=== PATIENT | female | born 1980 | race Two or more races ===

== ENCOUNTER 2020-09-15 18:10 | Emergency (ER) | payer SELFPAY ==
[~2020-09-15] VITALS: Ht 170.2 cm; Wt 109.0 kg
[2020-09-15 19:00] LABS: BILIRUBIN,URINE NEGATIVE (NEG); CLARITY,URINE CLEAR; COLOR,URINE YELLOW; NITRITE,URINE NEGATIVE (NEG); PROTEIN,URINE NEGATIVE (NEG-TRACE); UROBILINOGEN,URINE 0.2 mg/dL (0.2 mg/dL)
[2020-09-15] MEDS ORDERED: KETOROLAC 15 MG/ML VIAL. IVP ONE (19:00)
[2020-09-15] MEDS ORDERED: FAMOTIDINE 20 MG/2 ML VIAL IVP ONE (19:00)
[2020-09-15] MEDS ORDERED: IV NORMAL SALINE 1000ML BAG 1,000 ML IV ONE (19:00)
[2020-09-15 19:08] LABS: BACTERIA,URINE 0 /HPF (0-FEW); RBC,URINE 0 /HPF (0-2)
[2020-09-15 19:28] LABS: BASO # 0.1 x10^3/uL (0.0-0.2); BASO % 1 % (0-3); EOS # 0.6 x10^3/uL (0.0-0.7); EOS % 9 % (0-3); HEMATOCRIT 29.2 % (36.0-47.0); HEMOGLOBIN 9.1 g/dL (12.0-15.5); LYMPH # 2.5 x10^3/uL (1.0-4.8); LYMPH % 41 % (24-48); MEAN CORPUSCULAR HEMOGLOBIN 20 pg (25-35); MEAN CORPUSCULAR HGB CONC 31 g/dL (31-37); MEAN CORPUSCULAR VOLUME 66 fL (79-100); MONO # 0.4 x10^3/uL (0.0-1.1); MONO % 6 % (0-9); NEUT # 2.6 x10^3/uL (1.8-7.7); NEUT % 43 % (31-73); PLATELET COUNT 244 x10^3/uL (140-400); RED BLOOD COUNT 4.45 x10^6/uL (3.50-5.40); RED CELL DISTRIBUTION WIDTH 19.6 % (11.5-14.5); WHITE BLOOD COUNT 6.1 x10^3/uL (4.0-11.0)
--- NOTE | 2020-09-15 19:39 | PHYS DOC ---
Past Medical History Past Medical History: Anxiety, Other Additional Past Medical Histor: Covid19 Past Surgical History: Additional Past Surgical Histo: L heel Smoking Status: Never Smoker Alcohol Use: None Drug Use: None General Adult EDM: Chief Complaint: WEAKNESS/GENERALIZED HPI: HPI: Patient is a 40 year old female who presents with weakness, fatigue, and constipation. Patient is status post Covid diagnosis a month ago which ran its course without specific treatment. She denies any recent change to medication, and notes only taking hydroxyzine and citalopram once daily. She has not taken any other khjm-omy-[id number] medications or other prescriptions. She notes some reflux-like chest pain in her epigastric region, and she says she has been short of breath. She also notes constipation of around 2 weeks duration, although she had a bowel movement earlier today and said it was without blood or change in appearance. She denies any other focal abdominal pain. The weakness has been off and on for some time since Covid diagnosis. She denies cough, fever or chills. Review of Systems: Review of Systems: Constitutional: Denies fever or chills Eyes: Denies redness or eye pain HENT: Denies nasal congestion or sore throat Respiratory: Denies cough notes some shortness of breath Cardiovascular: Admits chest pain in the epigastric region denies palpitations GI: Denies abdominal pain, nausea, or vomiting : Denies dysuria or hematuria Musculoskeletal: Denies back pain or joint pain Integument: Denies rash or skin lesions Neurologic: Denies headache, admits generalized weakness denies sensory changes Complete systems were reviewed and found to be within normal limits, except as documented in this note. Current Medications: Current Medications Medications (Trade) Dose Ordered Sig/[facility] Start Time Stop Time Status Last Admin Dose Admin Famotidine (Pepcid Vial) 20 mg 1X ONCE 09/15/20 19:00 09/15/20 19:01 DC 09/15/20 19:22 20 MG Ketorolac Tromethamine (Toradol 15mg Vial) 15 mg 1X ONCE 09/15/20 19:00 09/15/20 19:01 DC 09/15/20 19:22 15 MG Sodium Chloride 1,000 ml @ 1,000 mls/hr 1X ONCE 09/15/20 19:00 09/15/20 19:59 09/15/20 19:22 1,000 MLS/HR Allergies: Allergies: Allergies Coded Allergies Type Severity Reaction Last Updated Verified No Known Drug Allergies 09/15/20 No Physical Exam: PE: Constitutional: Well developed, well nourished, no acute distress, non-toxic appearance HENT: Normocephalic, atraumatic Eyes: PERRL, EOMI, conjunctiva normal, no discharge Neck: Normal range of motion, no tenderness, supple Lungs & Thorax: No respiratory distress, equal chest rise and fall Abdomen: Soft, some tenderness over the epigastric region Skin: Warm, dry, no erythema, no rash Back: No tenderness, no CVA tenderness Extremities: No tenderness, ROM intact, no edema Neurologic: Alert and oriented X 3, normal motor function, normal sensory function, no focal deficits noted Psychologic: Affect normal, judgment normal Current Patient Data: Labs: Laboratory Tests Test 09/15/20 18:45 09/15/20 18:55 Urine Collection Type Unknown Urine Color Yellow Urine Clarity Clear Urine pH 6.0 (<5.0-8.0) Urine Specific [place] 1.025 (1.000-1.030) Urine Protein Negative mg/dL (NEG-TRACE) Urine Glucose (UA) Negative mg/dL (NEG) Urine Ketones (Stick) Negative mg/dL (NEG) Urine Blood Negative (NEG) Urine Nitrite Negative (NEG) Urine Bilirubin Negative (NEG) Urine Urobilinogen Dipstick 0.2 mg/dL (0.2 mg/dL) Urine Leukocyte Esterase Negative (NEG) Urine RBC 0 /HPF (0-2) Urine WBC 1-4 /HPF (0-4) Urine Squamous Epithelial Cells Occ /LPF Urine Bacteria 0 /HPF (0-FEW) POC Urine HCG, Qualitative Hcg negative (Negative) Vital Signs: Vital Signs Date Time Temp Pulse Resp B/P (MAP) Pulse Ox O2 Delivery O2 Flow Rate FiO2 09/15/20 18:25 98.2 83 18 126/78 (94) 99 Room Air 98.2 EKG: EKG: Normal sinus rhythm [address] elevation or other abnormalities noted. QRS 104 ms. QT/QTc 362/411 ms. Radiology/Procedures: Radiology/Procedures: PROCEDURE: CT ANGIOGRAPHY CHEST Exam: CT of chest with contrast INDICATION: Port of air, history of Covid TECHNIQUE: Sequential axial images through the chest obtained following the administration of 100 mL of Isovue-370 IV contrast. Sagittal and coronal reformatted images were reconstructed from the axial data and reviewed. 3-D reformatted images were reconstructed from the axial data and reviewed. Comparisons: None FINDINGS: Visualized portions of the thyroid are unremarkable. No enlarged central lymph nodes are identified. Heart size is normal. No pericardial effusion. Thoracic aorta has a normal course and caliber. Pulmonary artery is not enlarged. No pulmonary embolus identified within the main, lobar or segmental pulmonary arteries. Airways are patent. No consolidation or pneumothorax. No suspicious lung nodules are identified. No pleural effusion or thickening. Visualized upper abdomen is unremarkable. No suspicious osseous lesions or acute fractures. IMPRESSION: No pulmonary embolus identified within the main, lobar or segmental pulmonary arteries. No acute process identified within the chest. Exposure: One or more of the following in the visualized dose reduction techniques were utilized for this examination: 1. Automated exposure control 2. Adjustment of the MA and/or KV according to patient size 3. Use of iterative of reconstructive technique Electronically signed by: All Prakash MD (09/15/2020 9:07 PM) [facility] Course & Med Decision Making: Course & Med Decision Making Pertinent Labs and Imaging studies reviewed. (See chart for details) [] Dragon Disclaimer: Dragon Disclaimer: This electronic medical record was generated, in whole or in part, using a voice recognition dictation system. 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
[2020-09-15 19:48] LABS: CALCIUM 8.2 mg/dL (8.5-10.1); CREATININE 0.7 mg/dL (0.6-1.0); GFR 93.6; POTASSIUM 3.8 mmol/L (3.5-5.1)
[2020-09-15 19:54] LABS: ALBUMIN 3.4 g/dL (3.4-5.0); ALBUMIN/GLOBULIN RATIO 0.8 (1.0-1.7); MAGNESIUM 2.1 mg/dL (1.8-2.4); TOTAL BILIRUBIN 0.2 mg/dL (0.2-1.0); TOTAL PROTEIN 7.7 g/dL (6.4-8.2)
[2020-09-15 19:58] LABS: ANISOCYTOSIS MOD; HYPOCHROMIA MOD; MICROCYTOSIS MOD; PLT ESTIMATE ADEQUATE (ADEQUATE)
[2020-09-15 20:03] LABS: CREATINE KINASE 80 U/L (26-192)
[2020-09-15] MEDS ORDERED: CONTRAST GIVEN. MC PRN (20:45)
[2020-09-15] MEDS ORDERED: IOHEXOL 350 MG/ML 100 ML VIAL. IV ONE (21:00)
--- NOTE | 2020-09-15 21:10 | RAD ---
Exam: CT of chest with contrast INDICATION: Port of air, history of Covid TECHNIQUE: Sequential axial images through the chest obtained following the administration of 100 mL of Isovue-370 IV contrast. Sagittal and coronal reformatted images were reconstructed from the axial data and reviewed. 3-D reformatted images were reconstructed from the axial data and reviewed. Comparisons: None FINDINGS: Visualized portions of the thyroid are unremarkable. No enlarged central lymph nodes are identified. Heart size is normal. No pericardial effusion. Thoracic aorta has a normal course and caliber. Pulmon dolores artery is not enlarged. No pulmonary embolus identified within the main, lobar or segmental pulmo nary arteries. Airways are patent. No consolidation or pneumothorax. No suspicious lung nodules are identified. No pleural effusion or thickening. Visualized upper abdomen is unremarkable. No suspicious osseous lesions or acute fractures. IMPRESSION: No pulmonary embolus identified within the main, lobar or segmental pulmonary arteries. No acute proc ess identified within the chest. Exposure: One or more of the following in the visualized dose reduction techniques were utilized for this examination: 1. Automated exposure control 2. Adjustment of the MA and/or KV according to patient size 3. Use of iterative of reconstructive technique Electronically signed by: All Prakash MD (09/15/2020 9:07 PM) [facility]
[2020-09-15] MEDS ORDERED: SENN-121 PO (21:17)
[2020-09-15 21:22] VITALS: BP 115/74
--- NOTE | 2020-09-16 07:22 | EKG ---
[facility] [address] [place] [address] Test Date: 2020-09-15 Test Time: 18:58:44 Pat Name: ALBIN GUERRA Department: Room: Gender: F Senior Business Analyst: : 1980 Requested By: ELIO PANDEY Order Number: [id number] Reading MD: Measurements Intervals Vendor Rate: 77 P: 0 OK: 144 QRS: 64 QRSD: 104 T: 35 QT: 362 QTc: 411 Interpretive Statements SINUS RHYTHM NORMAL ECG RI6.02 No previous ECG available for comparison
== END 2020-09-15 21:35 | disposition home or self-care (01) ==
LOC: ER 18:10
DX: K59.00 Constipation, unspecified (principal); R53.1 Weakness; R53.83 Other fatigue; R07.89 Other chest pain; F41.9 Anxiety disorder, unspecified; Z98.890 Other specified postprocedural states
CPT/HCPCS: 36415; 71275; 80053; 81001; 81025; 82553; 83735; 84484; 85025; 85379; 93005; 96361; 96374; 96375; 99285; J1885; J3490; J7030; Q9967

== ENCOUNTER 2021-12-12 17:29 | Inpatient (IN) | payer SELFPAY ==
[~2021-12-12] VITALS: Ht 167.6 cm; Wt 113.3 kg
[~2021-12-12 17:29] MED LIST: SENN-121 PO
[2021-12-12] MEDS ORDERED: ONDANSETRON PF 4 MG/2 ML VIAL. IVP ONE (18:30)
[2021-12-12] MEDS ORDERED: IV NORMAL SALINE 1000ML BAG 1,000 ML IV ONE (18:30)
[2021-12-12] MEDS ORDERED: ACETAMINOPHEN 500 MG TABLET PO ONE (18:30)
[2021-12-12 18:44] LABS: BASO # 0.1 x10^3/uL (0.0-0.2); BASO % 1 % (0-3); EOS # 0.1 x10^3/uL (0.0-0.7); EOS % 1 % (0-3); HEMATOCRIT 22.7 % (36.0-47.0); LYMPH # 3.2 x10^3/uL (1.0-4.8); LYMPH % 33 % (24-48); MEAN CORPUSCULAR HEMOGLOBIN 17 pg (25-35); MEAN CORPUSCULAR HGB CONC 31 g/dL (31-37); MEAN CORPUSCULAR VOLUME 56 fL (79-100); MONO # 0.5 x10^3/uL (0.0-1.1); MONO % 5 % (0-9); NEUT # 5.9 x10^3/uL (1.8-7.7); NEUT % 60 % (31-73); PLATELET COUNT 234 x10^3/uL (140-400); RED BLOOD COUNT 4.04 x10^6/uL (3.50-5.40); RED CELL DISTRIBUTION WIDTH 20.5 % (11.5-14.5); WHITE BLOOD COUNT 9.7 x10^3/uL (4.0-11.0)
[2021-12-12] MEDS ORDERED: KETOROLAC 30 MG/ML VIAL. IVP ONE (18:45)
[2021-12-12 18:50] LABS: HEMOGLOBIN 6.9 g/dL (12.0-15.5)
[2021-12-12 18:59] LABS: INFLUENZA A PATIENT NEGATIVE (NEGATIVE); INFLUENZA B PATIENT NEGATIVE (NEGATIVE)
--- NOTE | 2021-12-12 19:05 | RAD ---
XR CHEST 1V History: Reason: Fever chills / Spl. Instructions: / History: Comparison: None. Findings: No consolidation or pleural effusion. Normal heart size. No pneumothorax. Impression: 1. No acute cardiopulmonary process. Electronically signed by: Ja Curiel DO (12/12/2021 7:03 PM) [facility]
[2021-12-12 19:07] LABS: CALCIUM 8.7 mg/dL (8.5-10.1); CREATININE 0.8 mg/dL (0.6-1.0); GFR 79.9; POTASSIUM 3.8 mmol/L (3.5-5.1)
[2021-12-12 19:11] LABS: BACTERIA,URINE MANY /HPF (0-FEW); RBC,URINE 0 /HPF (0-2)
[2021-12-12 19:12] LABS: ALBUMIN 3.4 g/dL (3.4-5.0); ALBUMIN/GLOBULIN RATIO 0.7 (1.0-1.7); TOTAL BILIRUBIN 0.6 mg/dL (0.2-1.0); TOTAL PROTEIN 8.5 g/dL (6.4-8.2)
[2021-12-12 19:26] LABS: FECAL OB PT NEGATIVE (NEG)
[2021-12-12 19:29] LABS: PLT ESTIMATE ADEQUATE (ADEQUATE)
[2021-12-12 19:30] LABS: ANISOCYTOSIS MOD; HYPOCHROMIA MARKED; MICROCYTOSIS MARKED
[2021-12-12] MEDS ORDERED: cefTRIAXone IV Push 1 GM VIAL. IVP ONE (19:45)
--- NOTE | 2021-12-12 20:28 | PHYS DOC ---
Past Medical History Past Medical History: Anxiety, Other Additional Past Medical Histor: Covid19 Past Surgical History: Additional Past Surgical Histo: L heel Smoking Status: Never Smoker Alcohol Use: None Drug Use: None General Adult EDM: Chief Complaint: FLU SYMPTOM HPI: HPI: Patient is a 41-year-old female who presents to the emergency department complaining of fevers and chills with generalized body aches for the past 3 days. Patient denies nausea, vomiting, diarrhea, denies abdominal pain, denies chest pain, shortness of breath, denies nasal congestion. Patient denies dizziness, syncopal or near syncopal episodes. Patient denies other physical complaints or physical concerns. Patient does report her last menstrual cycle was November 27, 2021 with normal duration and flow. Patient states she does not take prescription medications at home, has not treated her fever today with sohb-dso-dcocyzf Tylenol or ibuprofen. Review of Systems: Review of Systems: 14 body systems of review of systems have been reviewed. See HPI for pertinent positives and negative responses, otherwise all other systems are negative, nonpertinent or noncontributory. Constitutional: Negative except as outlined in HPI above. Skin: Negative except as outlined in HPI above. Eyes: Negative except as outlined in HPI above. HENT: Negative except as outlined in HPI above. Respiratory: Negative except as outlined in HPI above. Cardiovascular: Negative except as outlined in HPI above. GI: Negative except as outlined in HPI above. : Negative except as outlined in HPI above. Musculoskeletal: Negative except as outlined in HPI above. Integument: Negative except as outlined in HPI above. Neurologic: Negative except as outlined in HPI above. Endocrine: Negative except as outlined in HPI above. Lymphatic: Negative except as outlined in HPI above. Psychiatric: Negative except as outlined in HPI above. Heart Score: C/O Chest Pain: No Risk Factors: Risk Factors: DM, Current or recent (<one month) smoker, HTN, HLP, family history of CAD, obesity. Risk Scores: Score 0 - 3: 2.5% MACE over next 6 weeks - Discharge Home Score 4 - 6: 20.3% MACE over next 6 weeks - Admit for Clinical Observation Score 7 - 10: 72.7% MACE over next 6 weeks - Early Invasive Strategies Current Medications: Current Medications Medications (Trade) Dose Ordered Sig/Yolanda Start Time Stop Time Status Last Admin Dose Admin Acetaminophen (Tylenol) 1,000 mg 1X ONCE 12/12/21 18:30 12/12/21 18:33 DC 12/12/21 18:50 1,000 MG Ceftriaxone Sodium (Rocephin) 1 gm 1X ONCE 12/12/21 19:45 12/12/21 19:46 DC 12/12/21 19:54 1 GM Ketorolac Tromethamine (Toradol 30mg Vial) 30 mg 1X ONCE 12/12/21 18:45 12/12/21 18:46 DC 12/12/21 18:51 30 MG Ondansetron HCl (Zofran) 4 mg 1X ONCE 12/12/21 18:30 12/12/21 18:33 DC 12/12/21 18:50 4 MG Sodium Chloride 1,000 ml @ 1,000 mls/hr 1X ONCE 12/12/21 18:30 12/12/21 19:29 DC 12/12/21 18:48 1,000 MLS/HR Allergies: Allergies: Allergies Coded Allergies Type Severity Reaction Last Updated Verified No Known Drug Allergies 12/12/21 No Physical Exam: PE: Constitutional: Well developed, well nourished, no acute distress, non-toxic appearance. 41-year-old female in no apparent distress. HENT: Normocephalic, atraumatic. Oropharynx moist, pale, no deep tissue infectious process appreciated, normal dentition. Nasal turbinates are patent, bilateral TMs intact and within normal limits, there is no lymphadenopathy of the head or neck appreciated Eyes: Conjunctiva dusky, no discharge. Neck: Normal range of motion, no stridor. Cardiovascular: No cyanosis appreciated, distal cap refill less than 2 seconds. Heart sounds S1, S2, rapid/tachycardic rate. Lungs & Thorax: Patient is in no respiratory distress, no audible adventitious lung sounds appreciated. Lung sounds are clear to auscultation all lung tillman, normal work of breathing. Abdomen: Nontender, no abnormalities noted. Old well-healed abdominal scars present. Skin: Warm, dry, no erythema, no rash. Back: No tenderness, no deformities. Extremities: No tenderness, no cyanosis, no clubbing, ROM intact, no edema. Neurologic: Alert and oriented X 3, normal motor function, normal sensory function, no focal deficits noted. Psychologic: Affect normal, judgement normal, mood normal. Current Patient Data: Labs: Laboratory Tests Test 12/12/21 18:15 12/12/21 18:26 12/12/21 18:32 12/12/21 18:33 Urine Collection Type Unknown Urine Color (Auto) Yellow Urine Turbidity Clear Urine pH (Auto) 7.5 (<5.0-8.0) Urine Specific [place] 1.018 (1.000-1.030) Urine Protein (Auto) 30 mg/dL (Negative) Urine Glucose (Auto)(UA) Negative mg/dL (Negative) Urine Ketones (Auto) Negative mg/dL (Negative) Urine Blood (Auto) Negative (Negative) Urine Nitrite Positive (Negative) Urine Bilirubin (Auto) Negative (Negative) Urine Urobilinogen (Auto) 2 mg/dL (Normal) Urine Leukocyte Esterase (Auto) Moderate (Negative) Urine RBC 0 /HPF (0-2) Urine WBC 5-10 /HPF (0-4) Urine Squamous Epithelial Cells Few /LPF Urine Bacteria Many /HPF (0-FEW) Urine Mucus Slight /LPF White Blood Count 9.7 x10^3/uL (4.0-11.0) Red Blood Count 4.04 x10^6/uL (3.50-5.40) Hemoglobin 6.9 g/dL (12.0-15.5) *L Hematocrit 22.7 % (36.0-47.0) L Mean Corpuscular Volume 56 fL (79-100) L Mean Corpuscular Hemoglobin 17 pg (25-35) L Mean Corpuscular Hemoglobin Concent 31 g/dL (31-37) Red Cell Distribution Width 20.5 % (11.5-14.5) H Platelet Count 234 x10^3/uL (140-400) Neutrophils (%) (Auto) 60 % (31-73) Lymphocytes (%) (Auto) 33 % (24-48) Monocytes (%) (Auto) 5 % (0-9) Eosinophils (%) (Auto) 1 % (0-3) Basophils (%) (Auto) 1 % (0-3) Neutrophils # (Auto) 5.9 x10^3/uL (1.8-7.7) Lymphocytes # (Auto) 3.2 x10^3/uL (1.0-4.8) Monocytes # (Auto) 0.5 x10^3/uL (0.0-1.1) Eosinophils # (Auto) 0.1 x10^3/uL (0.0-0.7) Basophils # (Auto) 0.1 x10^3/uL (0.0-0.2) Platelet Estimate Adequate (ADEQUATE) Hypochromasia Marked Anisocytosis Mod Microcytosis Marked Sodium Level 136 mmol/L (136-145) Potassium Level 3.8 mmol/L (3.5-5.1) Chloride Level 102 mmol/L (98-107) Carbon Dioxide Level 21 mmol/L (21-32) Anion Gap 13 (6-14) Blood Urea Nitrogen 8 mg/dL (7-20) Creatinine 0.8 mg/dL (0.6-1.0) Estimated GFR (Cockcroft-Gault) 79.9 BUN/Creatinine Ratio 10 (6-20) Glucose Level 108 mg/dL (70-99) H Lactic Acid Level 1.2 mmol/L (0.4-2.0) Calcium Level 8.7 mg/dL (8.5-10.1) Total Bilirubin 0.6 mg/dL (0.2-1.0) Aspartate Amino Transferase (AST) 17 U/L (15-37) Alanine Aminotransferase (ALT) 18 U/L (14-59) Alkaline Phosphatase 70 U/L (46-116) Total Protein 8.5 g/dL (6.4-8.2) H Albumin 3.4 g/dL (3.4-5.0) Albumin/Globulin Ratio 0.7 (1.0-1.7) L Influenza Type A Antigen Negative (NEGATIVE) Influenza Type B Antigen Negative (NEGATIVE) SARS-CoV-2 Antigen (Rapid) Negative (NEGATIVE) POC Urine HCG, Qualitative Hcg negative (Negative) Test 12/12/21 18:54 Stool Occult Blood Negative (NEG) Laboratory Tests 12/12/21 18:26 Laboratory Tests 12/12/21 18:26 Vital Signs: Vital Signs Date Time Temp Pulse Resp B/P (MAP) Pulse Ox O2 Delivery O2 Flow Rate FiO2 12/12/21 17:50 103.0 104 22 157/65 (95) 96 Room Air 103.0 EKG: EKG: [] Radiology/Procedures: Radiology/Procedures: SEX: F EXAM STATUS: REG ER ORD. PHYSICIAN: ELIO TEJADA APRN REASON: Fever chills PROCEDURE: PORTABLE CHEST 1V XR CHEST 1V History: Reason: Fever chills / Spl. Instructions: / History: Comparison: None. Findings: No consolidation or pleural effusion. Normal heart size. No pneumothorax. Impression: 1. No acute cardiopulmonary process. Electronically signed by: Ja Curiel DO (12/12/2021 7:03 PM) [facility] Course & Med Decision Making: Course & Med Decision Making Pertinent Labs and Imaging studies reviewed. (See chart for details) 41-year-old female, vital signs reviewed, presents emerged from concerning fever chills and body aches at home. Physical presentation is concerning for viral syndrome however patient does have pale conjunctiva, suspicious for anemia. Will order 1 L normal saline, Zofran, Tylenol for fever of 103, CBC, lactic acid with reflex, CMP, urinalysis assay, urine test, rapid influenza and COVID testing, chest x-ray. Lab called critical hemoglobin of 6.9, I did discuss this with patient, recommended blood transfusion, patient is amendable to receiving blood related to her low hemoglobin level, patient denies a history of anemia, denies seeing blood in her stool, patient reports she does have heavy periods but has never been told that she is anemic. Discussed with patient needing to obtain stool for occult blood, patient is amenable to this planning. With female ED nurse at bedside for litigation docket manager, a rectal exam revealed nonth rombosed external hemorrhoids, there were no internal hemorrhoids appreciated, soft brown stool in the rectal vault was obtained and sent to lab for occult blood study. Patient tolerated well. The patient was typed and crossed for 2 units of packed red blood cells for transfusion. Patient's chest x-ray is unremarkable, all other patient labs are unremarkable, however the patient's urine is suggestive of urinary tract infection evidence of leukocyte Estrace, urine white blood cells, urine nitrates, there is no hematuria present, will treat with 1 g Rocephin IV. The patient is not for urine test. Discussed admission to the hospital for further investigation of anemia, patient is amenable to ED and admission planning. Called and discussed patient case and ED work-up with inpatient management physician Dr. Love who agrees patient's case warrants admission to the [facility], patient is awaiting hospital bed from warehouse distribution associate at this time, remains hemodynamically stable, last oral temp taken by me is 99.7, heart rate is 89 bpm, blood pressure 137/65, 100% room air O2 saturation. Dragon Disclaimer: Dragon Disclaimer: This electronic medical record was generated, in whole or in part, using a voice recognition dictation system. Departure Departure Impression: Primary Impression: Anemia Qualified Codes: D64.9 - Anemia, unspecified Additional Impression: Fever Qualified Codes: R50.9 - Fever, unspecified Disposition: 09 ADMITTED INPATIENT Admitting Physician: ORI (Admit to Dr. Love to [facility] unit for) Condition: GUARDED Referrals: NO PCP (PCP) ELIO TEJADA APRN December 12, 2021 20:28
[2021-12-12] MEDS: IV NORMAL SALINE 1000ML BAG 1,000 ML IV SCH (20:30)
[2021-12-12] MEDS ORDERED: MORPHINE SULFATE 4 MG/ML INJ. IVP PRN (20:30)
[2021-12-12] MEDS ORDERED: ONDANSETRON PF 4 MG/2 ML VIAL. IVP PRN (20:30)
[2021-12-12] MEDS ORDERED: ACETAMINOPHEN 325 MG TABLET. PO PRN (20:30)
[2021-12-12 21:15] VITALS: BP 118/54
[2021-12-12 22:01] VITALS: BP 115/49
[2021-12-12 22:16] VITALS: BP 111/50
[2021-12-12 23:00] VITALS: BP 105/52
[2021-12-12 23:20] VITALS: BP 105/52
[2021-12-13 00:45] VITALS: BP 108/52
[2021-12-13 01:34] LABS: HEMOGLOBIN 8.2 g/dL (12.0-15.5); RED BLOOD COUNT 4.36 x10^6/uL (3.50-5.40); RED CELL DISTRIBUTION WIDTH 20.9 % (11.5-14.5); WHITE BLOOD COUNT 8.1 x10^3/uL (4.0-11.0)
[2021-12-13 03:00] VITALS: BP 115/65
[2021-12-13] MEDS: IV NORMAL SALINE 1000ML BAG 1,000 ML IV SCH ×2 (04:53→15:11)
[2021-12-13 07:00] VITALS: BP 100/46
[2021-12-13 11:00] VITALS: BP 98/55
[2021-12-13] MEDS ORDERED: CALCIUM CARBONATE 500 MG TAB.CHEW PO PRN (11:15)
[2021-12-13] MEDS ORDERED: oxyCODONE/APAP 5/325 1 TAB TABLET PO PRN ×2 (11:15)
[2021-12-13] MEDS ORDERED: ELECTROLYTE (NON-ICU) PROTOCOL. MC PRN (11:15)
[2021-12-13] MEDS ORDERED: ZOLPIDEM 5 MG TABLET. PO PRN (11:15)
[2021-12-13] MEDS ORDERED: ONDANSETRON PF 4 MG/2 ML VIAL. IVP PRN (11:15)
[2021-12-13] MEDS ORDERED: ACETAMINOPHEN 325 MG TABLET. PO PRN (11:15)
--- NOTE | 2021-12-13 12:18 | PDOC1 ---
History and Physical Date of Service: DOS: DATE: 12/13/21 TIME: 12:11 Chief Complaint: Chief Complain: fever, fatigue History of Present Illness: HPI: Patient is a 41-year-old female presented to emergency room overnight due to 3- day history of fever chills and body aches. Denying any sort of respiratory symptoms. Did have COVID in the past but recovered well. On presentation to the emergency room patient was febrile and provided Tylenol for relief. She had an incidental finding of hemoglobin of 6.8. No signs of active bleeding including any GI sources. She was transfused 2 units packed red blood cells. When obtaining further history patient reports that she has very heavy periods each month and her most recent period finished on 02 December. Uncertain if she has been told she was anemic in the past. Patient uncertain of any family history of blood disorders. Says she had a grandfather who by bleeding out. Family members were told that he had "thin blood and did not clot properly." Patient also found to have urinary tract infection started on Rocephin in emergency room Admitted for further management Past Medical/Surgical History: PMH/PSH: Past Medical History: Anxiety, Additional Past Medical Histor: Covid19 Past Surgical History: Additional Past Surgical Histo: L heel Smoking Status: Never Smoker Alcohol Use: None Drug Use: None Allergies: Allergies: Coded Allergies: No Known Drug Allergies (Unverified , 12/12/21) Family History: Family History: unknown per patient Current Medications: Current Medications Current Medications Sodium Chloride 1,000 ml @ 1,000 mls/hr 1X ONCE IV Last administered on 12/12/21at 18:48; Start 12/12/21 at 18:30; Stop 12/12/21 at 19:29; Status DC Ondansetron HCl (Zofran) 4 mg 1X ONCE IVP Last administered on 12/12/21at 18:50; Start 12/12/21 at 18:30; Stop 12/12/21 at 18:33; Status DC Acetaminophen (Tylenol) 1,000 mg 1X ONCE PO Last administered on 12/12/21at 18:50; Start 12/12/21 at 18:30; Stop 12/12/21 at 18:33; Status DC Ketorolac Tromethamine (Toradol 30mg Vial) 30 mg 1X ONCE IVP Last administered on 12/12/21at 18:51; Start 12/12/21 at 18:45; Stop 12/12/21 at 18:46; Status DC Ceftriaxone Sodium (Rocephin) 1 gm 1X ONCE IVP Last administered on 12/12/21at 19:54; Start 12/12/21 at 19:45; Stop 12/12/21 at 19:46; Status DC Ondansetron HCl (Zofran) 4 mg PRN Q8HRS PRN IVP NAUSEA/VOMITING; Start 12/12/21 at 20:30; Stop 12/13/21 at 20:29 Morphine Sulfate (Morphine Sulfate) 4 mg PRN Q2HR PRN IVP PAIN; Start 12/12/21 at 20:30; Stop 12/13/21 at 20:29 Sodium Chloride 1,000 ml @ 100 mls/hr Q10H IV Last administered on 12/13/21at 04:53; Start 12/12/21 at 20:30; Stop 12/13/21 at 20:29 Acetaminophen (Tylenol) 650 mg PRN Q4HRS PRN PO FEVER > 100.3'F Last administered on 12/13/21at 03:29; Start 12/12/21 at 20:30; Stop 12/13/21 at 20:29 Ondansetron HCl (Zofran) 4 mg PRN Q6HRS PRN IVP NAUSEA/VOMITING; Start 12/13/21 at 11:15 Calcium Carbonate/ Glycine (Tums) 500 mg PRN Q3HRS PRN PO UPSET STOMACH; Start 12/13/21 at 11:15 Zolpidem Tartrate (Ambien) 5 mg PRN QHS PRN PO INSOMNIA, MAY REPEAT IN 1HR; Start 12/13/21 at 11:15 Info (Non-Icu Electrolyte Protocol) 1 ea PRN DAILY PRN MC SEE COMMENTS; Start 12/13/21 at 11:15 Oxycodone/ Acetaminophen (Percocet 5/325) 1 tab PRN Q4HRS PRN PO MILD PAIN, 1ST CHOICE; Start 12/13/21 at 11:15 Oxycodone/ Acetaminophen (Percocet 5/325) 2 tab PRN Q4HRS PRN PO MODERATE PAIN, SEVERE PAIN; Start 12/13/21 at 11:15 Acetaminophen (Tylenol) 650 mg PRN Q6HRS PRN PO Headaches, Temp > 101.5F; Start 12/13/21 at 11:15 Senna/Docusate Sodium (Senna Plus) 1 tab BID PO ; Start 12/13/21 at 21:00 Ceftriaxone Sodium (Rocephin) 1 gm Q24H IVP ; Start 12/13/21 at 21:00 Active Scripts Active Colace 2-in-1 Tablet (Sennosides/Docusate Sodium) 1 Each Tablet 1 Tab PO QHS PRN ROS: Review of Systems Review of System Unless noted in HPI 14 point review of systems was negative Physical Exam: Vital Signs: Vital Signs Date Time Temp Pulse Resp B/P (MAP) Pulse Ox O2 Delivery O2 Flow Rate FiO2 12/13/21 11:00 98.1 101 18 98/55 (69) 98 Room Air 98.1 Physcial Exam: GEN: No apparent distress. Alert and oriented HEENT: Normal cephalic, atraumatic, external auditory canals are patent EYES: Extraocular muscles are intact, pupil are equally round and reactive to light and accommodation MUSCULOSKELETAL: Well developed , well nourished, good range of motion ENDOCRINE: No thyromegaly was palpated LYMPHATICS: No cervical chain or axillary nodes were noted HEMATOPOIETIC: No bruising NECK: Supple, no JVD, no thyromegaly was noted LUNGS: Clear to auscultation in all lung tillman without rhonchi or wheezing HEART: RRR, S!, S2 present. Peripheral pulses intact, no obvious murmurs noted ABDOMEN: Soft, nontender. Positive bowel sounds, no organomegaly, normal bowel sounds EXTREMITIES: Without clubbing, cyanosis, or edema. Pedal pulses intact. Negative Homans sign NEUROLOGIC: Normal speech and tone. A&O x 3, moves all extremities, no obvious focal deficits PSYCHIATRIC: Normal affect, normal mood. Stable SKIN: No ulcerations or rashes, good skin turgor, no jaundice VASCULAR: Good capillary refill, neurovascular bundle appears to be intact Labs: Labs: Laboratory Tests Test 12/12/21 18:15 12/12/21 18:26 12/12/21 18:32 12/12/21 18:33 Urine Collection Type Unknown Urine Color (Auto) Yellow Urine Turbidity Clear Urine pH (Auto) 7.5 (<5.0-8.0) Urine Specific Bernard 1.018 (1.000-1.030) Urine Protein (Auto) 30 mg/dL (Negative) Urine Glucose (Auto)(UA) Negative mg/dL (Negative) Urine Ketones (Auto) Negative mg/dL (Negative) Urine Blood (Auto) Negative (Negative) Urine Nitrite Positive (Negative) Urine Bilirubin (Auto) Negative (Negative) Urine Urobilinogen (Auto) 2 mg/dL (Normal) Urine Leukocyte Esterase (Auto) Moderate (Negative) Urine RBC 0 /HPF (0-2) Urine WBC 5-10 /HPF (0-4) Urine Squamous Epithelial Cells Few /LPF Urine Bacteria Many /HPF (0-FEW) Urine Mucus Slight /LPF White Blood Count 9.7 x10^3/uL (4.0-11.0) Red Blood Count 4.04 x10^6/uL (3.50-5.40) Hemoglobin 6.9 g/dL (12.0-15.5) Hematocrit 22.7 % (36.0-47.0) Mean Corpuscular Volume 56 fL (79-100) Mean Corpuscular Hemoglobin 17 pg (25-35) Mean Corpuscular Hemoglobin Concent 31 g/dL (31-37) Red Cell Distribution Width 20.5 % (11.5-14.5) Platelet Count 234 x10^3/uL (140-400) Neutrophils (%) (Auto) 60 % (31-73) Lymphocytes (%) (Auto) 33 % (24-48) Monocytes (%) (Auto) 5 % (0-9) Eosinophils (%) (Auto) 1 % (0-3) Basophils (%) (Auto) 1 % (0-3) Neutrophils # (Auto) 5.9 x10^3/uL (1.8-7.7) Lymphocytes # (Auto) 3.2 x10^3/uL (1.0-4.8) Monocytes # (Auto) 0.5 x10^3/uL (0.0-1.1) Eosinophils # (Auto) 0.1 x10^3/uL (0.0-0.7) Basophils # (Auto) 0.1 x10^3/uL (0.0-0.2) Platelet Estimate Adequate (ADEQUATE) Hypochromasia Marked Anisocytosis Mod Microcytosis Marked Sodium Level 136 mmol/L (136-145) Potassium Level 3.8 mmol/L (3.5-5.1) Chloride Level 102 mmol/L (98-107) Carbon Dioxide Level 21 mmol/L (21-32) Anion Gap 13 (6-14) Blood Urea Nitrogen 8 mg/dL (7-20) Creatinine 0.8 mg/dL (0.6-1.0) Estimated GFR (Cockcroft-Gault) 79.9 BUN/Creatinine Ratio 10 (6-20) Glucose Level 108 mg/dL (70-99) Lactic Acid Level 1.2 mmol/L (0.4-2.0) Calcium Level 8.7 mg/dL (8.5-10.1) Total Bilirubin 0.6 mg/dL (0.2-1.0) Aspartate Amino Transf (AST/SGOT) 17 U/L (15-37) Alanine Aminotransferase (ALT/SGPT) 18 U/L (14-59) Alkaline Phosphatase 70 U/L (46-116) Total Protein 8.5 g/dL (6.4-8.2) Albumin 3.4 g/dL (3.4-5.0) Albumin/Globulin Ratio 0.7 (1.0-1.7) Influenza Type A Antigen Negative (NEGATIVE) Influenza Type B Antigen Negative (NEGATIVE) SARS-CoV-2 Antigen (Rapid) Negative (NEGATIVE) Bedside Urine HCG, Qualitative Hcg negative (Negative) Test 12/12/21 18:54 12/13/21 01:25 Stool Occult Blood Negative (NEG) White Blood Count 8.1 x10^3/uL (4.0-11.0) Red Blood Count 4.36 x10^6/uL (3.50-5.40) Hemoglobin 8.2 g/dL (12.0-15.5) Hematocrit 27.0 % (36.0-47.0) Mean Corpuscular Volume 62 fL (79-100) Mean Corpuscular Hemoglobin 19 pg (25-35) Mean Corpuscular Hemoglobin Concent 30 g/dL (31-37) Red Cell Distribution Width 20.9 % (11.5-14.5) Platelet Count 207 x10^3/uL (140-400) Laboratory Tests Test 12/12/21 18:15 12/12/21 18:26 12/12/21 18:32 12/12/21 18:33 Urine Collection Type Unknown Urine Color (Auto) Yellow Urine Turbidity Clear Urine pH (Auto) 7.5 (<5.0-8.0) Urine Specific Bernard 1.018 (1.000-1.030) Urine Protein (Auto) 30 mg/dL (Negative) Urine Glucose (Auto)(UA) Negative mg/dL (Negative) Urine Ketones (Auto) Negative mg/dL (Negative) Urine Blood (Auto) Negative (Negative) Urine Nitrite Positive (Negative) Urine Bilirubin (Auto) Negative (Negative) Urine Urobilinogen (Auto) 2 mg/dL (Normal) Urine Leukocyte Esterase (Auto) Moderate (Negative) Urine RBC 0 /HPF (0-2) Urine WBC 5-10 /HPF (0-4) Urine Squamous Epithelial Cells Few /LPF Urine Bacteria Many /HPF (0-FEW) Urine Mucus Slight /LPF White Blood Count 9.7 x10^3/uL (4.0-11.0) Red Blood Count 4.04 x10^6/uL (3.50-5.40) Hemoglobin 6.9 g/dL (12.0-15.5) Hematocrit 22.7 % (36.0-47.0) Mean Corpuscular Volume 56 fL (79-100) Mean Corpuscular Hemoglobin 17 pg (25-35) Mean Corpuscular Hemoglobin Concent 31 g/dL (31-37) Red Cell Distribution Width 20.5 % (11.5-14.5) Platelet Count 234 x10^3/uL (140-400) Neutrophils (%) (Auto) 60 % (31-73) Lymphocytes (%) (Auto) 33 % (24-48) Monocytes (%) (Auto) 5 % (0-9) Eosinophils (%) (Auto) 1 % (0-3) Basophils (%) (Auto) 1 % (0-3) Neutrophils # (Auto) 5.9 x10^3/uL (1.8-7.7) Lymphocytes # (Auto) 3.2 x10^3/uL (1.0-4.8) Monocytes # (Auto) 0.5 x10^3/uL (0.0-1.1) Eosinophils # (Auto) 0.1 x10^3/uL (0.0-0.7) Basophils # (Auto) 0.1 x10^3/uL (0.0-0.2) Platelet Estimate Adequate (ADEQUATE) Hypochromasia Marked Anisocytosis Mod Microcytosis Marked Sodium Level 136 mmol/L (136-145) Potassium Level 3.8 mmol/L (3.5-5.1) Chloride Level 102 mmol/L (98-107) Carbon Dioxide Level 21 mmol/L (21-32) Anion Gap 13 (6-14) Blood Urea Nitrogen 8 mg/dL (7-20) Creatinine 0.8 mg/dL (0.6-1.0) Estimated GFR (Cockcroft-Gault) 79.9 BUN/Creatinine Ratio 10 (6-20) Glucose Level 108 mg/dL (70-99) Lactic Acid Level 1.2 mmol/L (0.4-2.0) Calcium Level 8.7 mg/dL (8.5-10.1) Total Bilirubin 0.6 mg/dL (0.2-1.0) Aspartate Amino Transf (AST/SGOT) 17 U/L (15-37) Alanine Aminotransferase (ALT/SGPT) 18 U/L (14-59) Alkaline Phosphatase 70 U/L (46-116) Total Protein 8.5 g/dL (6.4-8.2) Albumin 3.4 g/dL (3.4-5.0) Albumin/Globulin Ratio 0.7 (1.0-1.7) Influenza Type A Antigen Negative (NEGATIVE) Influenza Type B Antigen Negative (NEGATIVE) SARS-CoV-2 Antigen (Rapid) Negative (NEGATIVE) Bedside Urine HCG, Qualitative Hcg negative (Negative) Test 12/12/21 18:54 12/13/21 01:25 Stool Occult Blood Negative (NEG) White Blood Count 8.1 x10^3/uL (4.0-11.0) Red Blood Count 4.36 x10^6/uL (3.50-5.40) Hemoglobin 8.2 g/dL (12.0-15.5) Hematocrit 27.0 % (36.0-47.0) Mean Corpuscular Volume 62 fL (79-100) Mean Corpuscular Hemoglobin 19 pg (25-35) Mean Corpuscular Hemoglobin Concent 30 g/dL (31-37) Red Cell Distribution Width 20.9 % (11.5-14.5) Platelet Count 207 x10^3/uL (140-400) Assessment/Plan Assessment/Plan Microcytic anemia likely due to heavy menstrual cycles, iron deficiency anemia, UTI. History anxiety -Admit to telemetry floor -Blood counts improved appropriately with blood transfusion -Check peripheral smear -Consulted hematology -Check iron studies. We will hold off starting any iron supplement in setting of active infection -Continue Rocephin for UTI. Follow culture results. -Regular diet -DVT prophylaxis Justifications for Admission Other Justification KAELA BRADFORD MD December 13, 2021 12:18
[2021-12-13 14:59] VITALS: BP 97/53
[2021-12-13 19:00] VITALS: BP 104/55
[2021-12-13] MEDS ORDERED: cefTRIAXone IV Push 1 GM VIAL. IVP SCH (21:00)
[2021-12-13] MEDS ORDERED: SENNOSIDES/DOCUSATE 8.6/50MG TABLET. PO SCH (21:00)
== END 2021-12-14 | disposition home or self-care (01) | DRG 690 ==
LOC: ER 17:29 → 5 NORTH 20:15
PROVIDERS: ADMIT Student in an Organized Health Care Education/Training Program; ATTEND Student in an Organized Health Care Education/Training Program
PROC: 30233N1 Transfusion of Nonautologous Red Blood Cells into Peripheral Vein, Percutaneous Approach (ICD-10-PCS; principal; 2021-12-12)
DX: N39.0 Urinary tract infection, site not specified (principal); Z20.822 Contact with and (suspected) exposure to COVID-19; F41.9 Anxiety disorder, unspecified; D50.9 Iron deficiency anemia, unspecified; N92.0 Excessive and frequent menstruation with regular cycle; B96.20 Unspecified Escherichia coli [E. coli] as the cause of diseases classified elsewhere; I10 Essential (primary) hypertension; E78.5 Hyperlipidemia, unspecified; Z86.16 Personal history of COVID-19; Z82.49 Family history of ischemic heart disease and other diseases of the circulatory system; Z79.899 Other long term (current) drug therapy
CPT/HCPCS: 36415; 36430; 71045; 80053; 81001; 81025; 82274; 83540; 83550; 83605; 85025; 85027; 86850; 86900; 86901; 86920; 87077; 87086; 87186; 87426; 87428; 96361; 96374; 96375; J0696; J1885; J2405; J7030; P9016; 99285-25; G0378